=== PATIENT | male | born 1975 | race Caucasian/White ===

== ENCOUNTER → 2023-07-25 | Outpatient (CLI) | payer OTHER | END | disposition home or self-care (01) | LOC: RAH 10:40 | PROVIDERS: ATTEND Nurse Practitioner | DX: M77.11 Lateral epicondylitis, right elbow (principal) | CPT/HCPCS: 73221 ==

== ENCOUNTER 2023-10-03 07:32 | Day surgery (SDC) | payer OTHER ==
[2023-10-02 11:52] LABS: BASOPHILS # (AUTO) 0.06 K/uL (0.00-0.20); BASOPHILS % (AUTO) 0.7 % (0.0-5.0); EOSINOPHILS # (AUTO) 0.38 K/uL (0.00-0.70); EOSINOPHILS % (AUTO) 4.2 % (0.0-8.0); HEMATOCRIT 44.5 % (42-54); IMMATURE GRANULOCYTE ABSOLUTE 0.04 K/uL (0-1); LYMPHOCYTES % (AUTO) 22.5 % (21.0-51.0); MEAN CORPUSCULAR HEMOGLOBIN 31.1 pg (27.0-33.0); MEAN CORPUSCULAR HGB CONC 35.1 g/dL (32.0-36.0); MEAN CORPUSCULAR VOLUME 88.8 fL (79-99); MONOCYTES # (AUTO) 0.9 K/uL (0.1-1.0); NEUTROPHILS # (AUTO) 5.6 K/uL (1.8-7.7); NEUTROPHILS % (AUTO) 62.2 % (40.0-77.0); PLATELET COUNT (AUTO) 224 K/uL (130-400); RED BLOOD CELL COUNT(AUTO) 5.01 MIL/uL (4.50-6.20); RED CELL DISTRIBUTION WIDTH 12.6 % (11.0-15.5)
[2023-10-02 11:53] VITALS: BP 135/76; PULSE 69; RESP 18
[2023-10-02 11:57] LABS: INR <= 0.93 (0.85-1.15); PROTHROMBIN TIME 10.9 SEC (9.6-11.6)
[2023-10-02 11:59] LABS: PARTIAL THROMBOPLASTIN TIME 29.9 SEC (26.3-35.5)
[2023-10-02 12:03] LABS: POTASSIUM 4.2 mmol/L (3.5-5.1)
[2023-10-02 12:20] LABS: B-TYPE NATRIURETIC PEPTIDE < 5 pg/mL (0-100)
[2023-10-03] VITALS (9 sets, daily range): BP systolic 107–139; BP diastolic 47–79; PULSE 64–79; RESP 14–19
[~2023-10-03] VITALS: Ht 177.8 cm; Wt 130.8 kg
[2023-10-03] MEDS: 0.9%NACL 1000ML 1,000 ML IV ONE (08:25)
[2023-10-03] MEDS ORDERED: LIDOCAINE HCL 400MG/20ML VIAL ONE (10:14)
[2023-10-03] MEDS ORDERED: MIDAZOLAM HCL 1 MG/ML 2ML VIAL ONE (10:14)
[2023-10-03] MEDS ORDERED: HEPARIN 10,000 UNIT/10ML (1,000 UNIT/ML) VIAL ONE (10:14)
[2023-10-03] MEDS ORDERED: FENTANYL CITRATE PF 50 MCG/1 ML 2ML VIAL ONE (10:14)
[2023-10-03] MEDS ORDERED: IODIXANOL 320 MG/ML 100 ML VIAL ONE (10:14)
[2023-10-03] MEDS ORDERED: CLOPIDOGREL 300MG TAB ONE ×2 (11:26→11:28)
[2023-10-03] MEDS ORDERED: ACETAMINOPHEN WITH CODEINE 1 TAB TAB PO PRN ×2 (11:30)
== END 2023-10-03 14:40 | disposition home or self-care (01) ==
LOC: DAH 07:32
PROVIDERS: ATTEND Internal Medicine Cardiovascular Disease
DX: I87.1 Compression of vein (principal); I83.899 Varicose veins of unspecified lower extremity with other complications; G60.8 Other hereditary and idiopathic neuropathies; Z79.899 Other long term (current) drug therapy; Z98.890 Other specified postprocedural states; Z79.01 Long term (current) use of anticoagulants
CPT/HCPCS: 80048; 83880; 85025; 85610; 85730; 36415; 93005; 37238; 37252; 37253 ×5; 75822; 36005; C1876; C1894 ×3; C1760 ×2; C1753; J3010; J3490; J7030; J1644 ×2; J2250; Q9967; A4215; A4222; A4221; A4663; A4216; A4606; A4223 ×3; 36010; 99156; 99157